=== PATIENT | female | born 1945 | race Caucasian/White ===

== ENCOUNTER 2020-04-11 10:47 | Outpatient (CLI) | payer MEDICARE, SELFPAY ==
--- NOTE | ~2020-04-11 | MM_ITS ---
EXAMINATION: MM screening miguel RT w irasema HISTORY: Screening right mammogram, history of left mastectomy. TECHNIQUE: Craniocaudal and mediolateral oblique 3-D tomosynthesis images were obtained and synthetic 2-D images were generated. CAD analysis was submitted and interpreted. COMPARISON: 01/07/2019, 06/09/2017, 06/20/2016 BREAST PARENCHYMAL COMPOSITION: The breasts are almost entirely fatty. FINDINGS: There is no evidence of suspicious mass, calcification, or architectural distortion to sugg est malignancy. There has been no suspicious interval change. IMPRESSION: 1. No mammographic evidence of malignancy. 2. Recommend routine screening mammography in one year. BI-RADS Category 1: Negative Reviewed, dictated and finalized at location A.
== END 2020-04-11 10:48 | disposition home or self-care (01) ==
PROVIDERS: PCP Family Medicine; Visit Provider Family Medicine
DX: Z12.31 Encounter for screening mammogram for malignant neoplasm of breast (principal)
CPT/HCPCS: 77063; 77067

== ENCOUNTER 2020-08-01 13:53 | Outpatient (CLI) | payer MEDICARE, SELFPAY ==
[2020-08-01 14:46] LABS: Influenza Control Valid (Valid)
[2020-08-01 22:40] LABS: SARS-CoV-2 RNA PCR Negative
== END 2020-08-01 13:54 | disposition home or self-care (01) ==
PROVIDERS: PCP Family Medicine; Visit Provider Family Medicine
DX: R50.9 Fever, unspecified (principal); Z20.828 Contact with and (suspected) exposure to other viral communicable diseases
CPT/HCPCS: 87081; 87635; 87804; 87880; C9803; U0003

== ENCOUNTER 2020-11-07 16:01 | Outpatient (CLI) | payer MEDICARE, SELFPAY ==
--- NOTE | ~2020-11-07 | XR_ITS ---
XR chest 2V 11/07/2020 16:48 Indication: Shortness of breath. Covid . Procedure: 2 view chest Comparison: 11/08/2015 Findings: Heart size normal. No focal air space disease, pulmonary edema, pleural effusion or suspect ed pneumothorax. There is atherosclerosis of the aorta. No acute osseous abnormality. Impression: 1: No acute cardiopulmonary disease. Reviewed, dictated and finalized at location A. HERMAL TECHNICIAN Impression: 1: No acute cardiopulmonary disease.
[2020-11-07 16:59] LABS: SARS-CoV-2 Ag Negative (Negative)
== END 2020-11-07 16:02 | disposition home or self-care (01) ==
LOC: CHSLAB 16:02
PROVIDERS: PCP Family Medicine; Visit Provider Family Medicine
DX: R06.02 Shortness of breath (principal)
CPT/HCPCS: 71046; 87426; C9803

== ENCOUNTER 2020-11-16 12:09 | Outpatient (CLI) | payer MEDICARE, SELFPAY ==
--- NOTE | ~2020-11-16 | US_ITS ---
EXAMINATION: US abdomen complete DATE: 11/16/2020 13:41 INDICATION: Abdominal pain. TECHNIQUE: Multiple grayscale and Doppler ultrasound images of the abdomen were obtained. COMPARISON: None FINDINGS: The spleen is normal in size. Calcifications in the spleen are consistent with old granulom atous disease. Abdominal aorta is normal in caliber. Inferior vena cava is normal. The visualized por tions of the head, body, and tail of the pancreas are normal. There is diffuse hepatic steatosis. The re is intrahepatic biliary duct dilatation. There is normal flow in main portal vein. The gallbladder is absent. The common duct measures 16 mm. The kidneys are normal in size. There are cysts in left k idney measuring up to 1.5 cm. IMPRESSION: 1. Intrahepatic and extrahepatic biliary duct dilatation status post cholecystectomy. Correlate with liver function tests to determine if this finding is clinically significant. 2. Diffuse hepatic steatosis. Reviewed, dictated and finalized at location A. GER CONVENTION IMPRESSION: 1. Intrahepatic and extrahepatic biliary duct dilatation status post cholecyste ctomy. Correlate with liver function tests to determine if this finding is clin ically significant. 2. Diffuse hepatic steatosis.
== END 2020-11-16 12:10 | disposition home or self-care (01) ==
LOC: CHSCARD 12:11
PROVIDERS: PCP Family Medicine; Visit Provider Family Medicine
DX: J44.9 Chronic obstructive pulmonary disease, unspecified (principal); R10.84 Generalized abdominal pain
CPT/HCPCS: 76700; 94060; 94726; 94729

== ENCOUNTER 2021-10-30 13:47 | Outpatient (CLI) | payer MEDICARE, SELFPAY ==
[2021-10-30 14:13] LABS: Basophils Absolute Auto 0.07 K/mm3 (0.00-0.10); Basophils Percent Auto 0.6 % (0.0-1.0); Eosinophils Percent Auto 2.7 % (1.0-6.0); Hematocrit 40.9 % (35.0-42.0); Hemoglobin 13.5 g/dL (11.7-13.8); Immature Granulocyte Absolute 0.05 K/mm3 (0.00-0.00); Immature Granulocyte Percent A 0.5 % (0.0-0.0); Lymphocytes Absolute Auto 2.34 K/mm3 (1.10-4.50); Lymphocytes Percent Auto 21.4 % (18.0-42.0); Mean Corpuscular Hemoglobin 28.7 pg (27.0-31.0); Mean Platelet Volume 9.6 fl (9.2-11.8); Monocytes Absolute Auto 0.86 K/mm3 (0.10-0.90); Monocytes Percent Auto 7.9 % (2.0-11.0); Neutrophils Absolute Auto 7.3 K/mm3 (1.7-7.2); Neutrophils Percent Auto 66.9 % (50.0-70.0); Platelet Count Result 266 K/mm3 (150-420); Red Cell Distribution Width 14.7 % (11.6-14.4); White Blood Count 10.9 K/mm3 (4.8-10.8)
[2021-10-30 14:26] LABS: Hemoglobin A1C 6.4 % (<5.7)
[2021-10-30 14:47] LABS: Alanine Aminotransferase 31 U/L (14-59); Albumin Level 3.9 g/dL (3.4-5.0); Alkaline Phosphatase 66 U/L (46-116); Anion Gap 9 mmol/L (8-16); Aspartate Amino Transferase 16 U/L (15-37); Bilirubin,Total 0.5 mg/dL (0.00-1.00); Blood Urea Nitrogen 23 mg/dL (7-18); Calcium 9.4 mg/dL (8.5-10.1); Carbon Dioxide 27 mmol/L (21-32); Chloride 104 mmol/L (98-108); Estimated Glomerular Filt Rate 55; Free T4 Free Thyroxine 0.97 ng/dL (0.76-1.46); Glucose 123 mg/dL (70-99); Osmolality Calculated 294 mOsm/kg (285-295); Potassium 3.9 mmol/L (3.5-5.1); Sodium 140 mmol/L (136-145); Thyroid Stimulating Hormone 0.46 uIU/mL (0.36-3.74); Total Protein 6.9 g/dL (6.4-8.2)
== END 2021-10-30 13:48 | disposition home or self-care (01) ==
LOC: CHSLAB 13:51
PROVIDERS: PCP Family Medicine; Visit Provider Family Medicine
DX: E11.9 Type 2 diabetes mellitus without complications (principal); I10 Essential (primary) hypertension; R94.6 Abnormal results of thyroid function studies
CPT/HCPCS: 36415; 80053; 83036; 84439; 84443; 85025

== ENCOUNTER 2024-03-16 08:55 | Outpatient (CLI) | payer MEDICARE, SELFPAY ==
--- NOTE | ~2024-03-16 | XR_ITS ---
Right Shoulder Technique: AP and scapular Y views were obtained. Clinical History: Pain Findings: No fracture or dislocation is seen. Osseous alignment is anatomic. There is moderate to adv anced the humeral and AC joint degenerative change. Soft tissues are unremarkable. Impression: Degenerative changes, as above. Reviewed, dictated and finalized at location . Impression: Degenerative changes, as above.
[2024-03-16 09:20] LABS: Basophils Absolute Auto 0.06 K/mm3 (0.00-0.10); Basophils Percent Auto 0.6 % (0.0-1.0); Eosinophils Absolute Auto 0.38 K/mm3 (0.02-0.50); Eosinophils Percent Auto 4.1 % (1.0-6.0); Hematocrit 36.5 % (35.0-42.0); Immature Granulocyte Absolute 0.03 K/mm3 (0.00-0.00); Immature Granulocyte Percent A 0.3 % (0.0-0.0); Lymphocytes Absolute Auto 2.59 K/mm3 (1.10-4.50); Lymphocytes Percent Auto 27.8 % (18.0-42.0); Mean Corpuscular HGB Conc 32.9 g/dL (32-36); Mean Corpuscular Hemoglobin 29.1 pg (27.0-31.0); Mean Corpuscular Volume 88.6 fL (78.0-102.0); Mean Platelet Volume 9.4 fl (9.2-11.8); Monocytes Absolute Auto 0.81 K/mm3 (0.10-0.90); Monocytes Percent Auto 8.7 % (2.0-11.0); Neutrophils Absolute Auto 5.46 K/mm3 (1.70-7.20); Neutrophils Percent Auto 58.5 % (50.0-70.0); Platelet Count Result 255 K/mm3 (150-420); Red Blood Count 4.12 M/mm3 (4.20-5.40); White Blood Count 9.3 K/mm3 (4.8-10.8)
[2024-03-16 09:28] LABS: Creatinine Urine 61.44 mg/dL (40-278); MALB Creatinine Ratio 112.3 mg/g (0-30)
[2024-03-16 09:33] LABS: Hemoglobin A1C 6.1 % (<5.7)
[2024-03-16 10:00] LABS: Alanine Aminotransferase 27 U/L (14-59); Albumin Level 3.8 g/dL (3.4-5.0); Alkaline Phosphatase 51 U/L (46-116); Anion Gap 7 mmol/L (4-12); Aspartate Amino Transferase 19 U/L (15-37); Bilirubin,Total 0.4 mg/dL (0.00-1.00); Blood Urea Nitrogen 32 mg/dL (7-18); Calcium 10.2 mg/dL (8.5-10.1); Carbon Dioxide 32 mmol/L (21-32); Chloride 102 mmol/L (98-108); Estimated Glomerular Filt Rate 53; Glucose 115 mg/dL (70-99); Osmolality Calculated 299 mOsm/kg (285-295); Potassium 4.3 mmol/L (3.5-5.1); Sodium 141 mmol/L (136-145); Total Protein 7.1 g/dL (6.4-8.2)
== END 2024-03-16 08:56 | disposition home or self-care (01) ==
LOC: CHSLAB 08:59
PROVIDERS: PCP Family Medicine; Visit Provider Family Medicine
DX: E11.9 Type 2 diabetes mellitus without complications (principal); M25.511 Pain in right shoulder
CPT/HCPCS: 36415; 73030; 80053; 82043; 83036; 85025

== ENCOUNTER 2024-06-15 07:20 | Outpatient (CLI) | payer MEDICARE, SELFPAY ==
--- NOTE | ~2024-06-15 | US_ITS ---
EXAMINATION: US arterial ankle brachial ind DATE: 06/15/2024 07:49 INDICATION: Peripheral vascular disease TECHNIQUE: Segmental pressures and plethysmographic and Doppler waveforms of the brachial and lower e xtremity arteries were obtained. COMPARISON: None. FINDINGS: Right and left brachial artery pressures of 141 mm Hg and 159 mm Hg, respectively, are concordant (no rmal difference <= 30 mmHg). The right ankle-brachial index (DIANNE) is 0.55 (normal >= 0.9-1.0). The right great toe-brachial index (TBI) is 0.36 (normal >= 0.65). Arterial Doppler waveforms are monophasic with borderline systolic up strokes at the right posterior tibial artery and delayed upstrokes at the right dorsalis pedis artery . The left DIANNE is 0.86. The left TBI is 0.52. Arterial Doppler waveforms are monophasic with brisk syst olic upstrokes at both left posterior tibial and dorsalis pedis arteries. IMPRESSION: 1. Arterial occlusive disease to the bilateral lower limbs with moderately decreased right DIANNE and TB I and mildly decreased left DIANNE and TBI. Reviewed, dictated and finalized at location B. IMPRESSION: 1. Arterial occlusive disease to the bilateral lower limbs with moderately decr eased right DIANNE and TBI and mildly decreased left DIANNE and TBI.
== END 2024-06-15 07:21 | disposition home or self-care (01) ==
LOC: CHSIMG 07:22
PROVIDERS: PCP Family Medicine; Visit Provider Family Medicine
DX: I73.9 Peripheral vascular disease, unspecified (principal)
CPT/HCPCS: 93922

== ENCOUNTER 2025-09-25 11:24 | Outpatient (CLI) | payer MEDICARE, SELFPAY ==
--- NOTE | ~2025-09-25 | XR_ITS ---
XR lumbar spine 2-3V 09/25/2025 11:52 Indication: Back pain Procedure: 3 views lumbar spine Comparison: 10/17/2016 Findings: There is disc narrowing at all lumbar levels. There is advanced multilevel facet hypertrophy. There is grade 1 degenerative spondylolisthesis at L4-5. There is dextroscoliosis. No acute fracture or traumatic malalignment. There is atherosclerosis of the aorta. Sacral foramen are grossly symmetric. Impression: 1: Progression of severe lumbar spondylosis with grade 1 degenerative spondylolisthesis at L4-5 and dextroscoliosis. Reviewed, dictated and finalized at location O. STMENT SPECIALIST Impression: 1: Progression of severe lumbar spondylosis with grade 1 degenerative spondylol isthesis at L4-5 and dextroscoliosis.
--- NOTE | ~2025-09-25 | XR_ITS ---
XR thoracic spine 3V 09/25/2025 11:52 Indication: Back pain Procedure: 3 views thoracic spine Comparison: No prior studies for comparison. Findings: Mild dextrocurvature of the thoracic spine. There is moderate multilevel disc narrowing and endplate hypertrophy. No acute fracture or traumatic malalignment. Vertebral body heights are maintained. There is atherosclerosis and ectasia of the aorta. Impression: 1: Moderate thoracic spondylosis with dextrocurvature of the thoracic spine. Reviewed, dictated and finalized at location O. RS AND EMULSIFIERS SUPERVISOR Impression: 1: Moderate thoracic spondylosis with dextrocurvature of the thoracic spine.
== END 2025-09-25 11:25 | disposition home or self-care (01) ==
LOC: CHSIMG 11:26
PROVIDERS: PCP Family Medicine; Visit Provider Family Medicine
DX: M54.9 Dorsalgia, unspecified (principal); M43.16 Spondylolisthesis, lumbar region; M47.816 Spondylosis without myelopathy or radiculopathy, lumbar region; M41.86 Other forms of scoliosis, lumbar region; M47.814 Spondylosis without myelopathy or radiculopathy, thoracic region; M41.84 Other forms of scoliosis, thoracic region
CPT/HCPCS: 72072; 72100